=== PATIENT | male | born 1960 | race Caucasian/White ===

== ENCOUNTER 2024-01-09 09:54 | Emergency (ER) | payer MEDICARE, OTHER, SELFPAY ==
[2024-01-09 10:07] VITALS: BP 179/76
[2024-01-09] MEDS: AUGMENTIN 875 MG/125 MG 1 TABLET PO (10:44)
[2024-01-09] MEDS: ADACEL 0.5 ML IM (10:47)
--- NOTE | 2024-01-09 10:50 | ED.SKININJ ---
HPI-Injury
General
Chief Complaint: Bite
Source: patient
Exam Limitations: none
Time Seen by Provider: 01/09/24 10:09
Nursing documentation reviewed up to this point in time: agreed with
History of Present Illness-Injury
Is this injury a work related problem?: No
Is pt an associate of [facility]?: No
Initial Injury comments:
63-year-old male past medical history of hypertension hypothyroidism presenting to the emergency department today with concerns of a dog bite to his right hand ongoing swelling since yesterday. This is his dog dog is up-to-date with vaccinations.
Denies any numbness weakness but has noticed increasing swelling today. No systemic or fevers.
Past History
Past History
ED Past Medical History: HTN and Hypothyroidism
Social History
Tobacco: Non-smoker
Employment: Employed (On a farm)
Review of Systems
Review of Systems
Allergies reviewed?: Yes
All Other Systems: ROS reviewed and negative except as documented in HPI and ROS
Phy Exam
Physical Exam
Physical Exam:
GENERAL: Alert , in no apparent distress
EYE: pupils equal and reactive
NECK: Supple, no significant adenopathy.
ENT: o/p clr, mmm.
CARDIAC: Regular rate and rhythm .
LUNGS: Clear breath sounds bilaterally, no acute respiratory distress, no wheezes/rales/rhonchi
ABDOMEN: Soft, without focal tenderness, no r/g, no cvat
NEUROLOGICAL: Alert and oriented, no focal neuro deficits
SKIN: Puncture wound to the right palm and middle finger to the proximal aspect. Some surrounding swelling but no significant pain good range of motion strength of all fingers no tenderness to the flexor tendons. Able to grinder operator automatic normally. And dry,
skin intact.
MUSCULOSKELETAL: No edema, well perfused.
PSYCH: Normal and appropriate interaction.
Course
Orders/Labs/Results
Orders:
Orders
01/09/24 10:18
Amoxicillin 875 mg/Clav 125 mg [Augmentin 875 mg/125 mg] 1 tablet PO NOW STA
Tetanus/Diphth/Acelpertussis [Adacel] 0.5 ml IM .ONCE ONE
CR Hand - Right Min 3 Views Urgent
Comment:
Reason For Exam: dog bite
Vital Signs
Initial and Last Documented VS:
Initial Vital Signs
Temp Pulse Resp BP Pulse Ox
98.1 F 83 18 179/76 100
01/09/24 10:07 01/09/24 10:07 01/09/24 10:07 01/09/24 10:07 01/09/24 10:07
Last Documented Vital Signs
Temp Pulse Resp BP Pulse Ox
98.1 F 83 18 179/76 100
01/09/24 10:07 01/09/24 10:07 01/09/24 10:07 01/09/24 10:07 01/09/24 10:07
MDM/Problems Addressed
MDM/Problems Addressed:
63-year-old male presenting to the emergency department today with concerns of a dog bite yesterday from his own dog. Low risk for rabies considering dogs up-to-date with vaccinations. He was given updated tetanus shot as his last was 10 years
ago. X-ray without signs of emergent injuries. There is some redness to the palm of the hand where there is a puncture wound from the dog bite. No significant tenderness to the flexor tendon able to grinder operator automatic normally digit is not fusiform and
swelling. Does not appear to be consistent with flexor tenosynovitis at this time. The concern of this progressing to that was explained to the patient thoroughly who demonstrated understanding and will return for any evidence of worsening.
Otherwise stable for outpatient management with antibiotics very strict cautions were discussed with the pt.
*Critical Care Note
Total Time (30-74mins, 75-104mins- exclusive of procedures): Not Applicable
ED Attending Note
-
Portions of this chart may have been created with voice recognition software.� Occasional wrong word or��sound alike� substitutions may have occurred due to the inherent limitations of voice recognition software.
Discharge Plan
Departure
Patient Disposition: Home (Routine Discharge)
Date of Disposition: 01/09/24
Time of Disposition: 11:10
Patient with high blood pressure during this ER visit?: No
Condition: Good
Covid-19: Not Applicable
Discharge Problem:
Dog bite of right hand
Instructions: Animal Bites (DC)
Prescriptions:
New
amoxicillin-pot clavulanate 875-125 mg tablet
1 tab PO BID 7 Days Qty: 14 0RF
Referrals:
Lesley Rivera NP [Family Provider] -
Activity Restrictions/Additional Instructions:
You came to the emergency department today with concerns of swelling discomfort to the right hand after dog bite. You are given an updated tetanus shot here today. Additionally restarted on Augmentin please take this twice daily for the next week
and follow-up closely as an outpatient with the primary care doctor. Immediately return to the emergency for any worsening symptoms systemic symptoms worsening pain down your hand.
Interventions
Interventions:
*Risk Screen - Suicide Last Done: 01/09/24 10:28
*General Assessment Last Done: 01/09/24 10:28
*Neglect/Abuse Screening Last Done: 01/09/24 10:28
*ED COVID-19 Vaccine History Last Done: 01/09/24 09:55
ED-Skin Assessment Last Done: 01/09/24 10:28
Discharge Date and Time
Print Language: HAITIAN
[2024-01-09 11:20] VITALS: BP 168/85
--- NOTE | 2024-01-09 11:20 | EDRN ---
Reviewed discharge instructions with patient. Verbalized understanding. Ambulated with steady gait to the lobby.
== END 2024-01-09 11:21 | disposition home or self-care (01) ==
LOC: EMR 09:54
PROVIDERS: EMERGENCY PHYSICIAN Emergency Medicine; FAMILY PHYSICIAN Internal Medicine
DX: S61.431A Puncture wound without foreign body of right hand, initial encounter (principal); W54.0XXA Bitten by dog, initial encounter; E03.9 Hypothyroidism, unspecified; I10 Essential (primary) hypertension; Z23 Encounter for immunization
CPT/HCPCS: 90471; 99283; 73130; 90715